=== PATIENT | male | born 1980 ===

== ENCOUNTER → 2022-07-28 | Outpatient (CLI) | payer OTHER | END | disposition home or self-care (01) | LOC: NUCLEAR 09:30 | PROVIDERS: ATTEND Specialist | DX: I73.9 Peripheral vascular disease, unspecified (principal) ==

== ENCOUNTER 2022-07-29 09:31 | Outpatient (CLI) | payer OTHER | END 2022-07-29 09:32 | disposition home or self-care (01) | LOC: NUCLEAR 09:31 | PROVIDERS: ATTEND Specialist | DX: I87.2 Venous insufficiency (chronic) (peripheral) (principal) ==